=== PATIENT | female | born 1950 | race Caucasian/White ===

== ENCOUNTER → 2016-06-08 | Day surgery (SDC) | payer OTHER ==
[~2016-06-08] MED LIST: BUPIVACAINE HCL PF 0.25% 30 ML VIAL ONE; KETOROLAC TROMETHAMINE 30 MG/ML (IVP) VIAL IV PUSH ONE; LACTATED RINGER'S 1000 ML INJ 1,000 ML ONE; ONDANSETRON HCL 4 MG/2 ML VIAL IV PUSH ONE; PROPOFOL 200 MG/20 ML AMP IV ONE; ceFAZolin 2 GM PREMIX 50 ML ONE
--- NOTE | 2016-06-14 17:17 | TN ---
cc: JEFFREY SMYTH DPMinnie DATE OF : 1950 HISTORY OF PRESENT ILLNESS: The patient is a 66-year-old female who presented to my clinic complaining of continued pain to the joint on the left first metatarsal phalangeal joint with spurring on the top of the joint. She had a previous procedure on the first metatarsal joint with a cheilectomy and had successful release of the pain from that procedure and she was consulting me regarding the potential surgery for the same procedure on the left side. X-rays were taken and showed spurring first metatarsal phalangeal joint. We discussed different options padding inserts ulceration shoe failed to relieve her pain adequately and she consented to correction with cheilectomy of the left foot first metatarsophalangeal joint. DATE OF SURGERY 06/08/2016 PROCEDURE: The patient was seen in preop holding by myself, nursing staff and Anesthesia where the correct patient side and site were all confirmed to be the left foot and the patient was then taken to the surgical suite, placed where attention was directed to the left foot, it was prepped and draped in normal sterile fashion followed by attention draped to the left dorsal aspect tarsal phalangeal joint where a linear incision was made to the dorsal medial aspect of the joint proximally 6 cm in length. Care was taken to avoid neurovascular structures. Wound incision was made down to the dorsal aspect of the capsule. The capsule was incised using a linear exposure was achieved as the joint spurs were removed using both a saw blade rongeur to remove all bony prominences to the dorsal medial and lateral aspects of the first metatarsal head and base of the proximal phalanx. Following this the area was copiously irrigated. It was also noted that there was a central area of eburnation of the cartilage to the center of the metatarsal head measuring about 7 mm's in diameter. This area was identified and subchondral drilling was performed in this area in order to achieve fibrocartilage formation in order to stop for a more extended period of time. Followed by 3-0 Vicryl suture followed by closure of the skin with a 3-0 nylon. No tourniquet was utilized. The area was dressed using Xeroform, followed by 4x4s, Lokesh and an Rey bandage to the left foot. The patient tolerated procedure and anesthesia well without complications and was taken back to PACU with vital signs stable and vascular status intact to the left foot. She will be weightbearing as tolerated left foot and short Cam boot and will follow up in clinic in 1 week and keep dressing clean, dry and intact. SURGEON: Jeffrey Smyth MD. EKG/ECG TECHNICIAN SURGEON Staff. PREOPERATIVE DIAGNOSIS Hallux limitus left POSTOPERATIVE DIAGNOSIS: Hallux limitus left PROCEDURE: Cheilectomy left foot. PROPHYLAXIS: 1 gram vancomycin preoperatively PATHOLOGY: None. ANESTHESIA General endotracheal anesthesia plus 10 mL of 0.25% Marcaine plain, hemostasis. TOURNIQUET TIME: No tourniquet utilized ESTIMATED BLOOD LOSS Minimal COMPLICATIONS None. DISPOSITION Weightbearing as tolerated in short Cam boot left lower extremity. Follow up in clinic in one week, keep dressing clean, dry, intact. Jeffrey WEATHERS/hannah /4:46 PM /5:05 PM
== END | disposition home or self-care (01) ==
LOC: ESDC 06:05
PROVIDERS: ATTEND Podiatrist Foot & Ankle Surgery
DX: M20.5X2 Other deformities of toe(s) (acquired), left foot (principal)
CPT/HCPCS: 01480; 28289; 73620; 76000; J0690; J1885; J2405; J3010; J7120